=== PATIENT | male | born 1955 | race Caucasian/White ===

== ENCOUNTER 2019-11-15 15:31 | Outpatient (CLI) | payer MEDICARE | END 2019-11-15 15:32 | disposition home or self-care (01) | LOC: CTENTCT 15:31 | PROVIDERS: ATTEND Otolaryngology Plastic Surgery within the Head & Neck | DX: J01.91 Acute recurrent sinusitis, unspecified (principal) | CPT/HCPCS: 70486 ==

== ENCOUNTER 2019-12-03 08:24 | Outpatient (CLI) | payer MEDICARE, OTHER ==
[2019-12-03 13:32] LABS: Hemoglobin 14.5 g/dL (14.0-18.0)
[2019-12-03 13:51] LABS: Anion Gap 12 mmol/L (10-20); BUN (Urea Nitrogen) 14 mg/dL (8.4-25.7); Calc. Creatinine Clearance 0 mL/min (70-130); Calcium 8.8 mg/dL (7.8-10.44); Carbon Dioxide 25 mmol/L (23-31); Chloride 105 mmol/L (98-107); Estimated GFR-MDRD 80; Glucose 105 mg/dL (80-115); Sodium 138 mmol/L (136-145)
[2019-12-03 18:48] LABS: SARS-CoV-2 MS2 Positive; SARS-CoV-2 N Gene Negative; SARS-CoV-2 S Gene Negative; SARS-CoV-2 orf1ab Negative
== END 2019-12-03 08:25 | disposition home or self-care (01) ==
LOC: LABBT 08:24
PROVIDERS: ATTEND Otolaryngology Plastic Surgery within the Head & Neck
DX: Z01.818 Encounter for other preprocedural examination (principal); Z11.59 Encounter for screening for other viral diseases; J01.91 Acute recurrent sinusitis, unspecified; J34.2 Deviated nasal septum; J30.9 Allergic rhinitis, unspecified; J34.3 Hypertrophy of nasal turbinates; J34.89 Other specified disorders of nose and nasal sinuses; J33.9 Nasal polyp, unspecified
CPT/HCPCS: 80048; 85014; 85018; 93005; U0003; 87635; 93010

== ENCOUNTER 2019-12-05 10:12 | Day surgery (SDC) | payer MEDICARE ==
[2019-12-03 12:45] VITALS: BMI 34.2
[2019-12-05] MEDS ORDERED: AFRIN NASAL MIST 15 ML BOT ONE ×2 (11:49→13:28)
[2019-12-05] MEDS ORDERED: Dexamethasone 20 MG/5 ML VIAL ONE (12:06)
[2019-12-05] MEDS ORDERED: Rocuronium Bromide 10 MG/ML (10ML VIAL) ONE (12:06)
[2019-12-05] MEDS ORDERED: PROPOFOL 200 MG/20 ML VIAL ONE (12:06)
[2019-12-05] MEDS ORDERED: Glycopyrrolate 0.2 MG/ML 5 ML SYRINGE ONE (12:06)
[2019-12-05] MEDS ORDERED: Ondansetron PF 4 MG/2 ML Vial ONE (12:06)
[2019-12-05] MEDS ORDERED: Lidocaine 1% PF 5 ML VIAL ONE (12:06)
[2019-12-05] MEDS ORDERED: Bacitracin Zinc Ointment 30 gm TUBE ONE (13:28)
[2019-12-05] MEDS ORDERED: Lidocaine 1% w/Epinephrine 1:100K 20 ML VIAL ONE (13:28)
[2019-12-05] MEDS ORDERED: Fentanyl 250 MCG/5 ML VIAL ONE (13:54)
[2019-12-05] MEDS ORDERED: HYDROcodone/Acetaminophen 5/325 mg Tablet ONE (15:44)
[2019-12-05] MEDS ORDERED: Fentanyl 100 MCG/2 ML VIAL ONE (15:52)
--- NOTE | 2019-12-06 10:02 | OP ---
DATE OF PROCEDURE: 12/05/2019 PREOPERATIVE DIAGNOSES: 1. Bilateral chronic dutton sinusitis. 2. Bilateral nasal polyposis. 3. Allergic fungal sinusitis. 4. Nasal septal deviation. 5. Bilateral inferior turbinate hypertrophy. 6. Nasal obstruction. 7. Bilateral dynamic nasal valve collapse. POSTOPERATIVE DIAGNOSES: 1. Bilateral chronic dutton sinusitis. 2. Bilateral nasal polyposis. 3. Allergic fungal sinusitis. 4. Nasal septal deviation. 5. Bilateral inferior turbinate hypertrophy. 6. Nasal obstruction. 7. Bilateral dynamic nasal valve collapse. PROCEDURES PERFORMED: 1. Bilateral endoscopic sinus surgery, total ethmoidectomies, including sphenoidotomies with removal of tissue. 2. Bilateral endoscopic sinus surgery, maxillary antrostomies with removal of tissue. 3. Bilateral endoscopic sinus surgery, frontal sinus exploration with removal of tissue. 4. Nasal septoplasty. 5. Bilateral inferior turbinate submucosal resection. 6. Bilateral repair of lateral nasal wall collapse. 7. LandmarX stereotactic image-guided sinus surgery. ESTIMATED BLOOD LOSS: 300 mL. COMPLICATIONS: None. ANESTHESIA: GETA. PROCEDURE IN DETAIL: Patient was taken to the operating room and placed supine on the table. General endotracheal anesthesia was obtained by the anesthesia staff. Then 1% lidocaine with 1:100,000 epinephrine was injected into the nasal septum as well as the inferior turbinates. The patient was prepped and draped in standard surgical fashion. The Afrin pledgets were then removed. A Eric incision was made on the left nasal septum. Submucoperichondrial dissection was performed bilaterally of the deviated portions of the septum, which included the maxillary crest and the crest deviation, as well as the mid portion of the septum. Cartilage and bony deviation were removed, leaving a generous caudal and dorsal strut. Any straight pieces of cartilage were then placed within the cartilage press, pressed, straightened, and then placed between the mucoperichondrial flaps, which were then closed using a 4-0 gut stitch. The inferior turbinates were then punctured with the submucosal Coblation machine, and 3 separate coblations were delivered to the anterior inferior portion of the inferior turbinates. Following this, the nasal cavity was irrigated. All debris was removed. An orogastric tube was placed. Gastric contents and Carvalho splints were then placed in the nasal cavity and sutured with a 3-0 silk stitch. The 0-degree microscope and microdebrider advanced into the nasal cavity. There were severe nasal polyposis bilaterally obstructing the entire nasal cavity. These nasal polyps were removed using the microdebrider and straight Blakesley forceps. A 1% lidocaine with 1:100,000 epinephrine were injected into the inferior turbinates, middle turbinates, and lateral nasal wall bilaterally. The middle turbinates were markedly atrophic from pressure from the nasal polyps. They were gently medialized and the uncinate process was visualized bilaterally and was removed using a ball-ended probe, up-biting Blakesley forceps and a 0-degree microdebrider bilaterally. Following this, the natural maxillary sinus ostia was identified and was widened using a straight Blakesley forceps and a 40-degree microdebrider blade bilaterally. Nasal polyps and fungal debris was removed from within the maxillary sinus bilaterally. Following this, the ethmoidal bulla was identified and was punctured on its medial and inferior aspect and was removed using the 0-degree microdebrider under Diasome image-guided assistance. The [employer] image-guided system was set up and calibrated and was noted to be within 1 mm of accuracy and all intranasal instruments used were under image guidance. Following this, the ethmoidal bulla was removed using the microdebrider bilaterally. The grand lamella was identified and was punctured into the posterior ethmoidal cells and was widened using the microdebrider bilaterally. The ethmoidal cells were completely full of nasal polyps which were removed using the microdebrider and Blakesley forceps bilaterally. Following this, the anterior wall of the sphenoid sinus was identified under image guidance and a 0-degree microdebrider was punctured into the sphenoid sinus bilaterally. The sphenoid sinus ostia was then widened in a medial and inferior direction bilaterally using 0-degree microdebrider. Polypoid tissue and fungal debris was removed from the sphenoid sinuses bilaterally. Following this, the 45-degree endoscope and the 40-degree microdebrider blade under image guidance was used to further open the anterior ethmoidal cells and expose the frontal sinus recess and frontal sinus ostia bilaterally. Following this, the frontal sinus ostia was widened bilaterally using the 40-degree microdebrider blade and up-biting Blakesley forceps. Fungal debris and nasal polyps were removed from the frontal sinuses bilaterally. Following this, the nasal cavity was irrigated and NasoPore packing was placed within the middle meatus due to excessive bleeding from the polypoid tissue and chronically infected mucosa. Merocel nasal tampons were placed bilaterally and were secured. Following this, a small incision was made intranasally in a transcartilaginous approach to the lateral nasal wall and implants were inserted restoring the integrity of the nasal wall bilaterally. The puncture site was then closed using a 6-0 chromic gut stitch. Following this, the Diasome image guided system was turned off. The patient tolerated the procedure well. Job ID: [id number]
== END 2019-12-05 18:15 | disposition home or self-care (01) ==
LOC: SDC 10:12
PROVIDERS: ATTEND Otolaryngology Plastic Surgery within the Head & Neck
PROC: 09SM0ZZ Reposition Nasal Septum, Open Approach (ICD-10-PCS; principal; 2019-12-05)
PROC: 09TL0ZZ Resection of Nasal Turbinate, Open Approach (ICD-10-PCS; 2019-12-05)
PROC: 8E09XBZ Computer Assisted Procedure of Head and Neck Region (ICD-10-PCS; 2019-12-05)
PROC: 09BT8ZZ Excision of Left Frontal Sinus, Via Natural or Artificial Opening Endoscopic (ICD-10-PCS; 2019-12-05)
PROC: 09BW8ZZ Excision of Right Sphenoid Sinus, Via Natural or Artificial Opening Endoscopic (ICD-10-PCS; 2019-12-05)
PROC: 09BX8ZZ Excision of Left Sphenoid Sinus, Via Natural or Artificial Opening Endoscopic (ICD-10-PCS; 2019-12-05)
PROC: 09BQ8ZZ Excision of Right Maxillary Sinus, Via Natural or Artificial Opening Endoscopic (ICD-10-PCS; 2019-12-05)
PROC: 09BR8ZZ Excision of Left Maxillary Sinus, Via Natural or Artificial Opening Endoscopic (ICD-10-PCS; 2019-12-05)
PROC: 09BS8ZZ Excision of Right Frontal Sinus, Via Natural or Artificial Opening Endoscopic (ICD-10-PCS; 2019-12-05)
PROC: 09TV8ZZ Resection of Left Ethmoid Sinus, Via Natural or Artificial Opening Endoscopic (ICD-10-PCS; 2019-12-05)
PROC: 09TU8ZZ Resection of Right Ethmoid Sinus, Via Natural or Artificial Opening Endoscopic (ICD-10-PCS; 2019-12-05)
PROC: 09QK0ZZ Repair Nasal Mucosa and Soft Tissue, Open Approach (ICD-10-PCS; 2019-12-05)
DX: J32.4 Chronic pansinusitis (principal); J33.9 Nasal polyp, unspecified; J30.89 Other allergic rhinitis; J34.2 Deviated nasal septum; J34.3 Hypertrophy of nasal turbinates; J34.89 Other specified disorders of nose and nasal sinuses; I10 Essential (primary) hypertension; R73.03 Prediabetes; K13.79 Other lesions of oral mucosa; H69.83 Other specified disorders of Eustachian tube, bilateral; H61.22 Impacted cerumen, left ear; H10.9 Unspecified conjunctivitis; Z79.51 Long term (current) use of inhaled steroids; Z79.899 Other long term (current) drug therapy; Z88.1 Allergy status to other antibiotic agents
CPT/HCPCS: 88304; J1100; J2001; J2405; J2704; J3010

== ENCOUNTER 2020-01-19 20:25 | Emergency (ER) | payer MEDICARE ==
[2020-01-19 21:15] LABS: #Eosinphils 0.1 thou/uL (0.0-0.7); #Lymphocytes 1.4 thou/uL (1.20-3.40); #Monocytes 0.6 thou/uL (0.11-0.59); #Neutrophils 10.9 thou/uL (1.40-6.50); %Basophils 0.4 % (0.0-1.0); %Eosinophils 0.4 % (0.0-10.0); %Lymphocytes 10.6 % (21.0-51.0); %Monocytes 4.9 % (0.0-10.0); %Neutrophils 83.7 % (42.0-75.0); Hemoglobin 14.2 g/dL (14.0-18.0); Mean Corpuscular HGB CONC 35.7 g/dL (32.0-36.0); Mean Corpuscular Hemoglobin 33.6 pg (27.0-31.0); Mean Corpuscular Volume 94.2 fL (78.0-98.0); Platelet Count 270 thou/uL (130-400); RBC Distribution Width 11.8 % (11.5-14.5); Red Blood Cell (RBC) Count 4.23 mill/uL (4.70-6.10)
[2020-01-19] MEDS ORDERED: Ketorolac Tromethamine 30 MG/ML VIAL ONE (21:39)
[2020-01-19] MEDS ORDERED: Ondansetron PF 4 MG/2 ML Vial ONE (21:39)
--- NOTE | 2020-01-19 21:42 | CT ---
CT ABDOMEN AND PELVIS WITHOUT IV CONTRAST: 01/19/20 INDICATIONS: Right abdominal pain. Nausea and vomiting. Comparison made to CT abdomen and pelvis from 02/03/17. FINDINGS: The lung bases are clear. Liver, spleen, and pancreas unremarkable. Post cholecystectomy change. Stomach and duodenum unremark able. There is moderate right hydronephrosis. Columning of the right ureter. There is an obstructing calculus in the distal right ureter which measures 6 to 7 mm. Left kidney and left collecting structures unremarkable. Urinary bladder unremarkable. Bowel loops unremarkable. Aorta unremarkable. No adenopathy or free fluid. Osseous structures are unremarkable. IMPRESSION: 6 mm obstructing calculus in the distal right ureter. POS: AGW
[2020-01-19] MEDS ORDERED: Fentanyl 100 MCG/2 ML VIAL ONE (21:49)
[2020-01-19 21:53] LABS: ALT (SGPT) 38 U/L (8-55); AST (SGOT) 22 U/L (5-34); Albumin 4.6 g/dL (3.4-4.8); Alkaline Phosphatase 92 U/L (40-110); Anion Gap 17 mmol/L (10-20); BUN (Urea Nitrogen) 21 mg/dL (8.4-25.7); Bilirubin, Total 0.7 mg/dL (0.2-1.2); Calc. Creatinine Clearance 0 mL/min (70-130); Calcium 9.3 mg/dL (7.8-10.44); Carbon Dioxide 20 mmol/L (23-31); Chloride 107 mmol/L (98-107); Estimated GFR-MDRD 52; Globulin 2.9 g/dL (2.4-3.5); Glucose 157 mg/dL (80-115); Lipase 61 U/L (8-78); Potassium 3.9 mmol/L (3.5-5.1); Protein, Total 7.5 g/dL (5.8-8.1); Sodium 140 mmol/L (136-145)
[2020-01-19 22:39] LABS: Bacteria/HPF None Seen HPF (None Seen); Bilirubin Negative (Negative); Blood, Urine 1+ (Negative); Clarity Clear (Clear); Glucose, Urine (Dipstick) Normal (Negative); Ketone, Urine Trace mg/dL (Negative); Leukocyte Negative Leu/uL (Negative); Nitrite Negative (Negative); Protein, Urine (Dipstick) Negative (Neg-Trace); RBC/HPF 0-3 HPF (0-3); Specific Gravity, Urine 1.017 (1.002-1.036); Squamous Epithelial None Seen HPF (0-3); Urobilinogen Normal mg/dL (Less than 2); WBC/HPF 0-3 HPF (0-3); pH, Urine 5.5 (5.0-9.0)
== END 2020-01-19 23:10 | disposition home or self-care (01) ==
LOC: ERS 20:25
DX: N20.1 Calculus of ureter (principal); K21.9 Gastro-esophageal reflux disease without esophagitis; I10 Essential (primary) hypertension
CPT/HCPCS: 36415; 74176; 80053; 81003; 81015; 83690; 84484; 85025; 93005; 96361; 96374; 96375; J1885; J2405; J3010

== ENCOUNTER 2020-01-25 08:16 | Outpatient (CLI) | payer MEDICARE, OTHER ==
[2020-01-25 14:51] LABS: Hemoglobin 12.8 g/dL (14.0-18.0); Mean Corpuscular HGB CONC 34.5 g/dL (32.0-36.0); Mean Corpuscular Volume 95.6 fL (78.0-98.0); Mean Platelet Volume 7.5 fL (7.4-10.4); Platelet Count 255 thou/uL (130-400); RBC Distribution Width 11.3 % (11.5-14.5); Red Blood Cell (RBC) Count 3.89 mill/uL (4.70-6.10); White Blood Cell (WBC) Count 9.6 thou/uL (4.8-10.8)
[2020-01-25 14:59] LABS: Anion Gap 11 mmol/L (10-20); BUN (Urea Nitrogen) 21 mg/dL (8.4-25.7); Calc. Creatinine Clearance 0 mL/min (70-130); Calcium 8.7 mg/dL (7.8-10.44); Carbon Dioxide 28 mmol/L (23-31); Chloride 99 mmol/L (98-107); Estimated GFR-MDRD 48; Glucose 108 mg/dL (80-115); Potassium 3.8 mmol/L (3.5-5.1); Sodium 134 mmol/L (136-145)
[2020-01-25 15:05] LABS: Bacteria/HPF None Seen HPF (None Seen); Bilirubin Negative (Negative); Blood, Urine 1+ (Negative); Clarity Clear (Clear); Glucose, Urine (Dipstick) Normal (Negative); Ketone, Urine Negative (Negative); Leukocyte Negative Leu/uL (Negative); Nitrite Negative (Negative); Protein, Urine (Dipstick) Negative (Neg-Trace); Specific Gravity, Urine 1.016 (1.002-1.036); Squamous Epithelial None Seen HPF (0-3); Urobilinogen Normal mg/dL (Less than 2); pH, Urine 6.5 (5.0-9.0)
[2020-01-26 12:44] LABS: SARS-CoV-2 MS2 Positive; SARS-CoV-2 N Gene Negative; SARS-CoV-2 S Gene Negative; SARS-CoV-2 by NAA Not Detected (NotDetected); SARS-CoV-2 orf1ab Negative
== END 2020-01-25 08:17 | disposition home or self-care (01) ==
LOC: LABBT 08:16
PROVIDERS: ATTEND Urology
DX: Z01.818 Encounter for other preprocedural examination (principal); Z11.59 Encounter for screening for other viral diseases; N20.1 Calculus of ureter
CPT/HCPCS: 80048; 81001; 85027; 87086; U0003; 87635

== ENCOUNTER 2020-01-29 10:45 | Day surgery (SDC) | payer MEDICARE ==
[2020-01-25 09:44] VITALS: BMI 34.2
[2020-01-29] MEDS ORDERED: Ondansetron PF 4 MG/2 ML Vial ONE (10:54)
[2020-01-29] MEDS ORDERED: PROPOFOL 200 MG/20 ML VIAL ONE (10:54)
[2020-01-29] MEDS ORDERED: Lidocaine 1% PF 5 ML VIAL ONE (10:54)
[2020-01-29] MEDS ORDERED: Levofloxacin 500 mg/D5W 100 ml Premix Bag ONE ×2 (11:14→13:37)
[2020-01-29] MEDS ORDERED: Midazolam HCl 2 mg/2 ml Vial ONE (13:01)
[2020-01-29] MEDS ORDERED: Fentanyl 100 MCG/2 ML VIAL ONE (13:01)
[2020-01-29] MEDS ORDERED: Phenazopyridine HCl 97.5 MG TABLET ONE (14:15)
--- NOTE | 2020-01-29 14:27 | RAD ---
EXAM: Retrograde IVP HISTORY: Kidney stones COMPARISON: CT abdomen/pelvis 01/19/2020 FINDINGS/IMPRESSION: Limited intraoperative fluoroscopic views of the retrograde IVP were submitted f or interpretation. A right ureteral stent is being placed and appears in good position on the last image. No obvious calcification is seen on this exam.
--- NOTE | 2020-01-29 14:45 | OP ---
DATE OF PROCEDURE: 01/29/2020 PREOPERATIVE DIAGNOSIS: Right ureteral stone. POSTOPERATIVE DIAGNOSIS: Right ureteral stone. PROCEDURES PERFORMED: Right ureteroscopy with laser lithotripsy, basket extraction, retrograde pyelogram, intraoperative interpretation, and 6 x 26 double-J ureteral stent placement. ANESTHESIA: General. COMPLICATIONS: None. ESTIMATED BLOOD LOSS: None. SPECIMEN: Right ureteral stone fragment. DESCRIPTION OF PROCEDURE: After informed consent, the patient was taken to the operating room, transferred to the table on his own power. Anesthesia was established. A time-out was performed, showing the correct patient, site, and procedure. Preoperative antibiotics were administered. He was prepped and draped in the lithotomy position. I began by inserting the semi-rigid ureteroscope through the urethra noting normal course and caliber of the urethra and mildly obstructing prostate. The bladder was entered and the right ureteral orifice cannulated with a wire, which was passed up to the level of the renal pelvis under fluoroscopic guidance. The scope was withdrawn and reinserted alongside the wire into the distal ureter, where the stone was quickly encountered about 3 cm proximal to the UVJ. A retrograde pyelogram was performed showing hydroureter and hydronephrosis. A 365 micron laser fiber was used to trim the stone down to one piece that was then removed with the basket and passed off the specimen. The scope was then reinserted and passed up to the proximal ureter noting no further stone fragments or abnormalities. A completion retrograde was performed. The scope was then withdrawn and a 6 x 26 double-J ureteral stent was passed over the wire with a curl in the kidney and curl in the bladder under fluoroscopic guidance. The bladder was then drained. The patient was then awoken from anesthesia, transferred back to his hospital bed and taken to PACU in stable condition, where he was discharged home upon recovery. Job ID: [id number]
== END 2020-01-29 16:06 | disposition home or self-care (01) ==
LOC: SDC 10:45
PROVIDERS: ATTEND Urology
PROC: 0TC68ZZ Extirpation of Matter from Right Ureter, Via Natural or Artificial Opening Endoscopic (ICD-10-PCS; principal; 2020-01-29)
PROC: 0T768DZ Dilation of Right Ureter with Intraluminal Device, Via Natural or Artificial Opening Endoscopic (ICD-10-PCS; 2020-01-29)
DX: N20.1 Calculus of ureter (principal); I10 Essential (primary) hypertension; R73.03 Prediabetes; Z79.899 Other long term (current) drug therapy; Z88.0 Allergy status to penicillin
CPT/HCPCS: 74420; 82365; 88300; J1956; J2250; J2405; J2704; J3010

== ENCOUNTER 2021-04-09 17:06 | Inpatient (IN) | payer MEDICARE ==
[2021-04-09 19:16] VITALS: BMI 34.2
[2021-04-09] MEDS ORDERED: Nitroglycerin 0.4 MG TAB (25 Tab Bottle) SL PRN (19:28)
[2021-04-09] MEDS ORDERED: Ondansetron PF 4 MG/2 ML Vial IVP PRN (19:28)
[2021-04-09] MEDS ORDERED: Acetaminophen 325 MG TAB PO PRN (19:28)
[2021-04-09] MEDS ORDERED: hydrALAZINE 20 MG/ML VIAL SLOW IVP PRN (19:32)
[2021-04-09] MEDS ORDERED: Nitroglycerin 2% Ointment 1 INCH/1 GM Packet TOP SCH (20:30)
[2021-04-09 21:29] LABS: Troponin I 0.515 ng/mL (< 0.028)
[2021-04-09] MEDS ORDERED: Enoxaparin Sodium 120 MG/0.8 ML SYRINGE SC SCH (22:00)
[2021-04-09 23:02] LABS: Troponin I 0.845 ng/mL (< 0.028)
[2021-04-10 05:04] LABS: #Basophils 0.1 thou/uL (0.0-0.2); #Eosinphils 0.4 thou/uL (0.0-0.7); #Lymphocytes 3.1 thou/uL (1.20-3.40); #Monocytes 0.8 thou/uL (0.11-0.59); #Neutrophils 5.8 thou/uL (1.40-6.50); %Eosinophils 3.8 % (0.0-10.0); %Lymphocytes 30.7 % (21.0-51.0); %Neutrophils 56.5 % (42.0-75.0); Hemoglobin 12.9 g/dL (14.0-18.0); Hemoglobin A1c 6.4 % (4.0-6.0); Mean Corpuscular HGB CONC 34.7 g/dL (32.0-36.0); Mean Corpuscular Hemoglobin 32.6 pg (27.0-31.0); Mean Platelet Volume 7.4 fL (7.4-10.4); Platelet Count 254 thou/uL (130-400); RBC Distribution Width 12.1 % (11.5-14.5); Red Blood Cell (RBC) Count 3.96 mill/uL (4.70-6.10); White Blood Cell (WBC) Count 10.2 thou/uL (4.8-10.8)
[2021-04-10 05:36] LABS: Anion Gap 13 mmol/L (10-20); BUN (Urea Nitrogen) 22 mg/dL (8.4-25.7); Calc. Creatinine Clearance 84 mL/min (70-130); Calcium 8.9 mg/dL (7.8-10.44); Carbon Dioxide 23 mmol/L (23-31); Cardiac Risk 5.4 (Less than 4.5); Chloride 103 mmol/L (98-107); Cholesterol 162 mg/dl (< 200 Desired); Glucose 121 mg/dL (80-115); HDL Cholesterol 30 mg/dL (>60 Neg Risk); LDL Cholesterol, Calculated 105 mg/dL; Potassium 3.8 mmol/L (3.5-5.1); Sodium 135 mmol/L (136-145); Triglycerides 135 mg/dL (Less than 150)
[2021-04-10 05:37] LABS: Troponin I 2.057 ng/mL (< 0.028)
[2021-04-10 07:55] LABS: Cardiac Risk 5.1 (Less than 4.5)
[2021-04-10] MEDS ORDERED: Aspirin 325 mg Enteric Coated Tablet PO SCH (08:30)
[2021-04-10 08:33] LABS: SARS-CoV-2 PCR by NAA Not Detected (NotDetected)
[2021-04-10] MEDS ORDERED: Sodium Chloride 0.9% 1,000 ML IV SCH (09:00)
[2021-04-10] MEDS ORDERED: Enoxaparin Sodium 120 MG/0.8 ML SYRINGE SC SCH (09:00)
[2021-04-10] MEDS ORDERED: FLU VACC QS2021-22(65YR UP)/PF 240 MCG/0.7 ML SYRINGE IM ONE (09:00)
[2021-04-10] MEDS ORDERED: Midazolam HCl 2 mg/2 ml Vial ONE (09:10)
[2021-04-10] MEDS ORDERED: Nitroglycerin 100MG/250ML BOT 0 ML ONE (09:10)
[2021-04-10] MEDS ORDERED: Fentanyl 100 MCG/2 ML VIAL ONE ×3 (09:10→16:57)
[2021-04-10] MEDS ORDERED: Heparin 10,000 UNITS/ 10 ML VIAL ONE (09:10)
[2021-04-10] MEDS ORDERED: Lidocaine 1% (PF) 30 ML VIAL ONE (09:10)
[2021-04-10] MEDS ORDERED: Heparin 25,000 units/D5W 500 ML ONE (10:41)
[2021-04-10] MEDS ORDERED: Albumin 5% 500 ML ONE (11:03)
[2021-04-10] MEDS ORDERED: Nitroglycerin 2% Ointment 1 INCH/1 GM Packet ONE (11:21)
[2021-04-10] MEDS ORDERED: ceFAZolin 2 GM/DEX 5% 100 ML BAG ONE (11:30)
[2021-04-10] MEDS ORDERED: Fentanyl 250 MCG/5 ML VIAL ONE ×2 (12:24)
[2021-04-10] MEDS ORDERED: Midazolam HCl 5 mg/5 ml Vial ONE (12:24)
[2021-04-10] MEDS ORDERED: Rocuronium Bromide 50 MG/5 ML VIAL ONE (12:25)
[2021-04-10] MEDS ORDERED: Lidocaine 2% PF 100 mg/5 ml Syringe ONE (12:55)
[2021-04-10] MEDS ORDERED: Heparin 1,000 UNITS/500 ML BAG (ARTLINE) ONE (12:55)
[2021-04-10] MEDS ORDERED: Heparin 5,000 UNITS/ML VIAL ONE (12:55)
[2021-04-10] MEDS ORDERED: Aminocaproic Acid 5 GM/20 ML VIAL ONE (12:55)
[2021-04-10] MEDS ORDERED: Nitroglycerin 50 MG/250 ML BOT ONE (12:55)
[2021-04-10] MEDS ORDERED: Calcium Chloride 1 GM/10 ML Abboject SYRINGE ONE (12:55)
[2021-04-10] MEDS ORDERED: Potassium Chloride 60 MEQ/30 ML VIAL ONE (12:55)
[2021-04-10] MEDS ORDERED: Papaverine 60 MG/2 ML VIAL ONE (12:55)
[2021-04-10] MEDS ORDERED: Heparin 30,000 units/30 ml VIAL ONE (12:55)
[2021-04-10] MEDS ORDERED: ePHEDrine 50 MG/ML VIAL ONE (12:55)
[2021-04-10] MEDS ORDERED: Mannitol 12.5 GM/50 ML ONE (12:55)
[2021-04-10] MEDS ORDERED: Norepinephrine 4 MG/4 ML VIAL ONE (12:55)
[2021-04-10] MEDS ORDERED: Thrombin 5000 UNITS/5 ML VIAL ONE (12:55)
[2021-04-10] MEDS ORDERED: Magnesium Sulfate 1 GM/2 ML VIAL ONE (12:55)
[2021-04-10] MEDS ORDERED: PROPOFOL 200 MG/20 ML VIAL ONE (12:55)
[2021-04-10] MEDS ORDERED: Rocuronium Bromide 10 MG/ML (10ML VIAL) ONE (12:55)
[2021-04-10] MEDS ORDERED: Lidocaine 1% PF 5 ML VIAL ONE (12:55)
[2021-04-10] MEDS ORDERED: Protamine Sulfate 250 MG/25 ML VIAL ONE (12:55)
[2021-04-10] MEDS ORDERED: Sodium Bicarb 50 MEQ/50 ML Abboject 8.4% SYRINGE ONE (12:55)
[2021-04-10] MEDS ORDERED: Cardioplegic Soln 1,000 ML BAG ONE (12:55)
[2021-04-10] MEDS ORDERED: Esmolol 100 MG/10 ML VIAL ONE (12:55)
[2021-04-10] MEDS ORDERED: Sodium Chloride 0.9% 10 ML ONE (12:56)
[2021-04-10 16:44] LABS: Actual Bicarbonate (HCO3a) 21.1 mEq/L (22-28); Base Excess (BEa) -3.8 mEq/L (-2.0 to +3.0); CO2 Tension 37.8 mmHg (35.0-45.0); Calcium, Ionized (arterial) 1.23 mmol/L (1.12-1.30); Carboxyhemoglobin (COHb) 0.7 gm% (0.0-3.0); Hemoglobin (Hb) 12.1 g/dL (14.0-18.0); Potassium - ABG Lab 4.17 mmol/L (3.70-5.30); pH, Arterial 7.36 (7.35-7.45)
[2021-04-10 16:45] LABS: Puncture Site Arterial Line
[2021-04-10] MEDS ORDERED: niCARdipine 25 MG in Sodium Chloride 0.9% 250 ML 240 ML IVPB PRN (16:53)
[2021-04-10] MEDS ORDERED: Fentanyl 100 MCG/2 ML VIAL SLOW IVP PRN (16:53)
[2021-04-10] MEDS ORDERED: Nitroglycerin 50 MG/250 ML BOT 250 ML IVPB PRN (16:53)
[2021-04-10] MEDS ORDERED: Bisacodyl 10 MG SUPP PR PRN (16:53)
[2021-04-10] MEDS ORDERED: Potassium Chloride 20 MEQ/100 ML PREMIX BAG IVPB PRN (16:53)
[2021-04-10] MEDS ORDERED: Promethazine HCl 25 MG/ML VIAL IM PRN (16:53)
[2021-04-10] MEDS ORDERED: Mag-Al 1200 mg/1200 mg/30 ML UDCUP PO PRN (16:53)
[2021-04-10] MEDS ORDERED: hydrALAZINE 20 MG/ML VIAL SLOW IVP PRN (16:53)
[2021-04-10] MEDS ORDERED: Guaifenesin DM 100-10/5 ML UDCUP PO PRN (16:53)
[2021-04-10] MEDS ORDERED: Morphine 2 MG/ML VIAL SLOW IVP PRN (16:53)
[2021-04-10] MEDS ORDERED: Post-Op Insulin Drip Protocol IVPB ONE (16:53)
[2021-04-10] MEDS ORDERED: Ondansetron PF 4 MG/2 ML Vial IVP PRN (16:53)
[2021-04-10] MEDS ORDERED: Norepinephrine 8 MG/0.9% NS 250 ML IVPB PRN (16:53)
[2021-04-10] MEDS ORDERED: Bisacodyl 5 MG TAB PO PRN (16:53)
[2021-04-10] MEDS ORDERED: Hetastarch 6% 500 ML 500 ML IVPB PRN (16:53)
[2021-04-10] MEDS ORDERED: Acetaminophen 325 MG TAB PO PRN (16:53)
[2021-04-10] MEDS ORDERED: Insulin Regular 300 UNITS/3 ML VIAL ONE (17:13)
[2021-04-10 17:14] LABS: #Basophils 0.1 thou/uL (0.0-0.2); #Eosinphils 0.4 thou/uL (0.0-0.7); #Lymphocytes 3.3 thou/uL (1.20-3.40); #Neutrophils 11.7 thou/uL (1.40-6.50); %Basophils 0.5 % (0.0-1.0); %Eosinophils 2.5 % (0.0-10.0); %Lymphocytes 19.9 % (21.0-51.0); %Monocytes 6.3 % (0.0-10.0); %Neutrophils 70.9 % (42.0-75.0); Hemoglobin 11.9 g/dL (14.0-18.0); Mean Corpuscular HGB CONC 35.2 g/dL (32.0-36.0); Mean Corpuscular Hemoglobin 33.8 pg (27.0-31.0); Mean Platelet Volume 7.1 fL (7.4-10.4); Platelet Count 162 thou/uL (130-400); RBC Distribution Width 12.2 % (11.5-14.5); Red Blood Cell (RBC) Count 3.54 mill/uL (4.70-6.10); White Blood Cell (WBC) Count 16.6 thou/uL (4.8-10.8)
[2021-04-10 17:23] LABS: Anion Gap 13 mmol/L (10-20); BUN (Urea Nitrogen) 21 mg/dL (8.4-25.7); Calc. Creatinine Clearance 93 mL/min (70-130); Calcium 8.6 mg/dL (7.8-10.44); Carbon Dioxide 18 mmol/L (23-31); Chloride 108 mmol/L (98-107); Glucose 136 mg/dL (80-115); Potassium 4.3 mmol/L (3.5-5.1); Sodium 135 mmol/L (136-145)
[2021-04-10 17:26] LABS: INR-International Normal Ratio 1.3; PTT 27.9 sec (22.9-36.1); Prothrombin Time 16.4 sec (12.0-14.7)
[2021-04-10] MEDS: Lactated Ringer's 1,000 ML IV SCH (17:30)
[2021-04-10] MEDS ORDERED: Dextrose 50% Abboject 50 ML SYRINGE SLOW IVP PRN (17:30)
[2021-04-10] MEDS ORDERED: HUMULIN R 100 UNITS in Sodium Chloride 0.9% 100 ML IVPB SCH (17:30)
[2021-04-10] MEDS ORDERED: Dextrose 5% in Water 1,000 ML IV PRN (17:30)
[2021-04-10] MEDS ORDERED: Insulin Regular 300 UNITS/3 ML VIAL SC PRN (17:30)
[2021-04-10 17:45] LABS: Potassium 4.2 mmol/L (3.5-5.1)
[2021-04-10] MEDS ORDERED: Morphine 4 MG/ML VIAL SLOW IVP PRN (19:26)
[2021-04-10] MEDS ORDERED: Atorvastatin Calcium 40 MG TAB PO SCH (21:00)
[2021-04-10] MEDS ORDERED: Famotidine/PF 20 mg/2ml Vial SLOW IVP SCH (21:00)
[2021-04-10 21:42] LABS: Actual Bicarbonate (HCO3a) 16.9 mEq/L (22-28); Base Excess (BEa) -6.7 mEq/L (-2.0 to +3.0); CO2 Tension 28.3 mmHg (35.0-45.0); Calcium, Ionized (arterial) 1.14 mmol/L (1.12-1.30); Carboxyhemoglobin (COHb) 0.6 gm% (0.0-3.0); Hemoglobin (Hb) 11.9 g/dL (14.0-18.0); O2 Tension (PaO2), arterial 80.6 mmHg (> 80.0); Potassium - ABG Lab 3.96 mmol/L (3.70-5.30)
[2021-04-10 22:03] LABS: ALV-art Gradient 97.925 mmHg (0-20); Puncture Site Arterial Line
[2021-04-10] MEDS: ceFAZolin Sodium/D5W 2 GM in Premix Bag 1 BAG IVPB SCH (22:14)
[2021-04-10 22:16] LABS: Hemoglobin 12.1 g/dL (14.0-18.0)
[2021-04-10 22:24] LABS: Potassium 4.2 mmol/L (3.5-5.1)
[2021-04-10] MEDS: HYDROcodone/Acetaminophen 5/325 mg Tablet PO PRN (23:44)
[2021-04-11] MEDS: Fentanyl 100 MCG/2 ML VIAL SLOW IVP PRN ×3 (00:45→06:13)
[2021-04-11] MEDS: HYDROcodone/Acetaminophen 5/325 mg Tablet PO PRN ×4 (04:25→20:30)
[2021-04-11 05:15] LABS: #Basophils 0.1 thou/uL (0.0-0.2); #Lymphocytes 1.3 thou/uL (1.20-3.40); #Neutrophils 9.4 thou/uL (1.40-6.50); %Basophils 0.6 % (0.0-1.0); %Eosinophils 0.3 % (0.0-10.0); %Lymphocytes 11.1 % (21.0-51.0); %Monocytes 8.7 % (0.0-10.0); %Neutrophils 79.2 % (42.0-75.0); Hemoglobin 11.1 g/dL (14.0-18.0); Mean Corpuscular HGB CONC 33.8 g/dL (32.0-36.0); Mean Corpuscular Hemoglobin 32.5 pg (27.0-31.0); Mean Platelet Volume 7.5 fL (7.4-10.4); Platelet Count 216 thou/uL (130-400); RBC Distribution Width 12.3 % (11.5-14.5); Red Blood Cell (RBC) Count 3.41 mill/uL (4.70-6.10); White Blood Cell (WBC) Count 11.9 thou/uL (4.8-10.8)
[2021-04-11] MEDS: ceFAZolin Sodium/D5W 2 GM in Premix Bag 1 BAG IVPB SCH ×2 (05:24→07:37)
[2021-04-11 05:34] LABS: Anion Gap 13 mmol/L (10-20); BUN (Urea Nitrogen) 20 mg/dL (8.4-25.7); Calc. Creatinine Clearance 97 mL/min (70-130); Calcium 8.6 mg/dL (7.8-10.44); Carbon Dioxide 22 mmol/L (23-31); Chloride 107 mmol/L (98-107); Glucose 136 mg/dL (80-115); Potassium 4.3 mmol/L (3.5-5.1); Sodium 138 mmol/L (136-145)
[2021-04-11] MEDS: Lactated Ringer's 1,000 ML IV SCH (06:28)
[2021-04-11] MEDS ORDERED: Furosemide 40 MG/4 ML VIAL SLOW IVP SCH (06:30)
[2021-04-11] MEDS: Carvedilol 3.125 MG TAB PO SCH ×2 (07:38→17:50)
[2021-04-11] MEDS: Aspirin 325 MG TAB PO SCH (07:38)
[2021-04-11] MEDS: Potassium Chloride 10 MEQ TAB PO SCH ×2 (07:40→17:50)
[2021-04-11] MEDS ORDERED: Aspirin 325 mg Enteric Coated Tablet PO SCH (09:00)
[2021-04-11] MEDS: Furosemide 40 MG TAB PO SCH (14:05)
[2021-04-11] MEDS: Atorvastatin Calcium 40 MG TAB PO SCH (20:30)
[2021-04-12] MEDS: HYDROcodone/Acetaminophen 5/325 mg Tablet PO PRN ×2 (00:21→08:17)
[2021-04-12] MEDS: Carvedilol 3.125 MG TAB PO SCH ×2 (08:49→19:25)
[2021-04-12] MEDS: Aspirin 325 MG TAB PO SCH (08:49)
[2021-04-12] MEDS: Furosemide 40 MG TAB PO SCH ×2 (08:49→14:36)
[2021-04-12] MEDS: Potassium Chloride 10 MEQ TAB PO SCH ×2 (08:49→19:25)
[2021-04-12] MEDS ORDERED: Mineral Oil ENEMA PR PRN (19:20)
[2021-04-12] MEDS ORDERED: Nitroglycerin 0.4 MG TAB (25 Tab Bottle) SL PRN (19:20)
[2021-04-12] MEDS ORDERED: Milk Of Magnesia 30 ML UDCUP PO PRN (19:20)
[2021-04-12] MEDS ORDERED: Zolpidem Tartrate 5 MG TAB PO PRN (19:20)
[2021-04-12] MEDS ORDERED: diphenhydrAMINE 25 MG CAP PO PRN (19:20)
[2021-04-12] MEDS: Atorvastatin Calcium 40 MG TAB PO SCH (22:16)
[2021-04-13] MEDS: Furosemide 40 MG TAB PO SCH ×2 (08:47→14:53)
[2021-04-13] MEDS: Carvedilol 3.125 MG TAB PO SCH ×2 (08:47→16:26)
[2021-04-13] MEDS: Potassium Chloride 10 MEQ TAB PO SCH ×2 (08:47→16:26)
[2021-04-13] MEDS: Aspirin 325 MG TAB PO SCH (08:47)
[2021-04-13 08:50] LABS: #Lymphocytes 1.3 thou/uL (1.20-3.40); #Monocytes 1.3 thou/uL (0.11-0.59); #Neutrophils 13.3 thou/uL (1.40-6.50); %Basophils 0.3 % (0.0-1.0); %Eosinophils 0.1 % (0.0-10.0); %Neutrophils 83.7 % (42.0-75.0); Hemoglobin 10.6 g/dL (14.0-18.0); Mean Corpuscular HGB CONC 34.8 g/dL (32.0-36.0); Mean Corpuscular Hemoglobin 33.3 pg (27.0-31.0); Mean Corpuscular Volume 95.7 fL (78.0-98.0); Mean Platelet Volume 7.3 fL (7.4-10.4); Platelet Count 201 thou/uL (130-400); RBC Distribution Width 12.2 % (11.5-14.5); Red Blood Cell (RBC) Count 3.19 mill/uL (4.70-6.10); White Blood Cell (WBC) Count 15.9 thou/uL (4.8-10.8)
[2021-04-13 09:17] LABS: Anion Gap 14 mmol/L (10-20); BUN (Urea Nitrogen) 26 mg/dL (8.4-25.7); Calc. Creatinine Clearance 138 mL/min (70-130); Carbon Dioxide 23 mmol/L (23-31); Chloride 102 mmol/L (98-107); Glucose 154 mg/dL (80-115); Sodium 135 mmol/L (136-145)
[2021-04-13 09:27] LABS: Phosphorus 1.8 mg/dL (2.3-4.7)
[2021-04-13] MEDS: HYDROcodone/Acetaminophen 5/325 mg Tablet PO PRN (09:39)
[2021-04-13] MEDS ORDERED: Potassium Phosphate 30 MMOL in Sodium Chloride 0.9% 500 ML IVPB SCH ×2 (11:00→12:15)
[2021-04-13] MEDS ORDERED: Enoxaparin Sodium 40 MG/0.4 ML SYRINGE SC SCH (12:30)
[2021-04-13 14:22] LABS: Lactic Acid 1.5 mmol/L (0.5-2.2)
[2021-04-13] MEDS ORDERED: Bisacodyl 5 MG TAB PO SCH (16:02)
[2021-04-13] MEDS: Atorvastatin Calcium 40 MG TAB PO SCH (20:40)
[2021-04-14] MEDS ORDERED: Aspirin 325 MG TAB PO SCH (06:28)
[2021-04-14 08:18] LABS: #Eosinphils 0.1 thou/uL (0.0-0.7); #Lymphocytes 2.1 thou/uL (1.20-3.40); #Neutrophils 10.1 thou/uL (1.40-6.50); %Basophils 0.4 % (0.0-1.0); %Eosinophils 0.7 % (0.0-10.0); %Lymphocytes 15.9 % (21.0-51.0); %Monocytes 7.7 % (0.0-10.0); %Neutrophils 75.3 % (42.0-75.0); Hemoglobin 10.3 g/dL (14.0-18.0); Mean Corpuscular HGB CONC 33.4 g/dL (32.0-36.0); Mean Corpuscular Volume 95.9 fL (78.0-98.0); Mean Platelet Volume 7.2 fL (7.4-10.4); Platelet Count 289 thou/uL (130-400); RBC Distribution Width 12.5 % (11.5-14.5); Red Blood Cell (RBC) Count 3.22 mill/uL (4.70-6.10); White Blood Cell (WBC) Count 13.4 thou/uL (4.8-10.8)
[2021-04-14 08:35] LABS: Anion Gap 16 mmol/L (10-20); BUN (Urea Nitrogen) 28 mg/dL (8.4-25.7); Calc. Creatinine Clearance 119 mL/min (70-130); Calcium 7.9 mg/dL (7.8-10.44); Carbon Dioxide 22 mmol/L (23-31); Chloride 102 mmol/L (98-107); Glucose 129 mg/dL (80-115); Magnesium 2.1 mg/dL (1.6-2.6); Potassium 3.8 mmol/L (3.5-5.1); Sodium 136 mmol/L (136-145)
[2021-04-14 08:45] LABS: Phosphorus 2.7 mg/dL (2.3-4.7)
[2021-04-14] MEDS: Bisacodyl 5 MG TAB PO SCH (09:07)
[2021-04-14] MEDS: Furosemide 40 MG TAB PO SCH ×2 (09:07→13:37)
[2021-04-14] MEDS: Aspirin Chewable 81 MG TAB PO SCH (09:08)
[2021-04-14] MEDS: Enoxaparin Sodium 40 MG/0.4 ML SYRINGE SC SCH (09:08)
[2021-04-14] MEDS: Carvedilol 3.125 MG TAB PO SCH ×2 (09:08→17:14)
[2021-04-14] MEDS: Polyethylene Glycol 3350 17 GM Packet PO SCH (09:08)
[2021-04-14] MEDS: Clopidogrel Bisulfate 75 MG TAB PO SCH (09:08)
[2021-04-14] MEDS: Potassium Chloride 10 MEQ TAB PO SCH ×2 (09:08→17:14)
[2021-04-14] MEDS: Loratadine 10 MG TAB PO SCH (09:08)
[2021-04-14] MEDS: Atorvastatin Calcium 40 MG TAB PO SCH (21:00)
[2021-04-14] MEDS: HYDROcodone/Acetaminophen 5/325 mg Tablet PO PRN (21:00)
[2021-04-15 05:06] LABS: #Basophils 0.1 thou/uL (0.0-0.2); #Eosinphils 0.3 thou/uL (0.0-0.7); #Lymphocytes 2.6 thou/uL (1.20-3.40); #Neutrophils 5.9 thou/uL (1.40-6.50); %Basophils 0.6 % (0.0-1.0); %Eosinophils 3.2 % (0.0-10.0); %Lymphocytes 26.2 % (21.0-51.0); %Monocytes 10.5 % (0.0-10.0); %Neutrophils 59.5 % (42.0-75.0); Hemoglobin 9.6 g/dL (14.0-18.0); Mean Corpuscular HGB CONC 34.4 g/dL (32.0-36.0); Mean Corpuscular Hemoglobin 33.2 pg (27.0-31.0); Mean Corpuscular Volume 96.5 fL (78.0-98.0); Mean Platelet Volume 7.1 fL (7.4-10.4); Platelet Count 254 thou/uL (130-400); RBC Distribution Width 12.5 % (11.5-14.5); White Blood Cell (WBC) Count 9.9 thou/uL (4.8-10.8)
[2021-04-15 05:21] LABS: Anion Gap 14 mmol/L (10-20); BUN (Urea Nitrogen) 24 mg/dL (8.4-25.7); Calc. Creatinine Clearance 124 mL/min (70-130); Calcium 7.8 mg/dL (7.8-10.44); Carbon Dioxide 25 mmol/L (23-31); Chloride 103 mmol/L (98-107); Glucose 118 mg/dL (80-115); Potassium 3.5 mmol/L (3.5-5.1); Sodium 138 mmol/L (136-145)
[2021-04-15 07:03] VITALS: BP 137/71; TEMP 98.5
[2021-04-15] MEDS: Furosemide 40 MG TAB PO SCH (08:38)
[2021-04-15] MEDS: Polyethylene Glycol 3350 17 GM Packet PO SCH (08:38)
[2021-04-15] MEDS: Aspirin Chewable 81 MG TAB PO SCH (08:38)
[2021-04-15] MEDS: Carvedilol 3.125 MG TAB PO SCH (08:38)
[2021-04-15] MEDS: Loratadine 10 MG TAB PO SCH (08:39)
[2021-04-15] MEDS: Enoxaparin Sodium 40 MG/0.4 ML SYRINGE SC SCH (08:39)
[2021-04-15] MEDS: Clopidogrel Bisulfate 75 MG TAB PO SCH (08:39)
[2021-04-15] MEDS: Bisacodyl 5 MG TAB PO SCH (08:39)
[2021-04-15] MEDS: Potassium Chloride 10 MEQ TAB PO SCH (08:39)
== END 2021-04-15 10:42 | disposition home or self-care (01) | DRG 233 ==
LOC: 2NO 17:06 → PACU-TCU 04-10 11:45 → OBSVTOIN 04-10 12:42 → CCU 04-10 15:17 → 2NO 04-12 17:04
PROVIDERS: ADMIT Family Medicine; ATTEND Internal Medicine
PROC: 02100Z9 Bypass Coronary Artery, One Artery from Left Internal Mammary, Open Approach (ICD-10-PCS; principal; 2021-04-10)
PROC: 4A023N7 Measurement of Cardiac Sampling and Pressure, Left Heart, Percutaneous Approach (ICD-10-PCS; 2021-04-10)
PROC: 021109W Bypass Coronary Artery, Two Arteries from Aorta with Autologous Venous Tissue, Open Approach (ICD-10-PCS; 2021-04-10)
PROC: 06BQ4ZZ Excision of Left Saphenous Vein, Percutaneous Endoscopic Approach (ICD-10-PCS; 2021-04-10)
PROC: B2111ZZ Fluoroscopy of Multiple Coronary Arteries using Low Osmolar Contrast (ICD-10-PCS; 2021-04-10)
PROC: B2151ZZ Fluoroscopy of Left Heart using Low Osmolar Contrast (ICD-10-PCS; 2021-04-10)
PROC: 5A1221Z Performance of Cardiac Output, Continuous (ICD-10-PCS; 2021-04-10)
DX: I21.4 Non-ST elevation (NSTEMI) myocardial infarction (principal); J96.01 Acute respiratory failure with hypoxia; J81.1 Chronic pulmonary edema; K21.9 Gastro-esophageal reflux disease without esophagitis; Z20.822 Contact with and (suspected) exposure to COVID-19; I10 Essential (primary) hypertension; E66.9 Obesity, unspecified; I25.10 Atherosclerotic heart disease of native coronary artery without angina pectoris; D72.829 Elevated white blood cell count, unspecified; E78.00 Pure hypercholesterolemia, unspecified; E83.39 Other disorders of phosphorus metabolism; K59.00 Constipation, unspecified; Z88.1 Allergy status to other antibiotic agents; Z88.8 Allergy status to other drugs, medicaments and biological substances; Z79.899 Other long term (current) drug therapy; Z68.36 Body mass index [BMI] 36.0-36.9, adult
CPT/HCPCS: 36415; 36416; 36430; 71045; 74018; 74176; 80048; 80061; 82805; 83036; 83605; 83735; 83880; 84100; 84145; 84484; 85025; 85347; 85610; 85730; 86850; 86900; 86901; 93005; 93010; 93306; 93458; 93798; 94002; 94150; 94640; 96372; 99152; 99153; G0378; J0360; J1644; J1650; J1815; J1940; J2001; J2150; J2250; J2270; J2405; J2440; J2704; J2720; J3010; J3370; J3475; J3480; J3490; J7030; J7050; J7120; J7620; P9045; S0017; S0028; U0003; U0005

== ENCOUNTER 2022-03-09 11:47 | Emergency (ER) | payer MEDICARE | END 2022-03-09 13:21 | disposition left against medical advice (07) | LOC: ERS 11:47 | DX: Z53.21 Procedure and treatment not carried out due to patient leaving prior to being seen by health care provider (principal) | CPT/HCPCS: 93005 ==

== ENCOUNTER 2022-07-30 08:26 | Emergency (ER) | payer MEDICARE, SELFPAY ==
[2022-07-30 10:08] LABS: #Basophils 0.1 thou/uL (0.0-0.2); #Eosinphils 0.9 thou/uL (0.0-0.7); #Lymphocytes 2.4 thou/uL (1.20-3.40); #Monocytes 0.8 thou/uL (0.11-0.59); #Neutrophils 5.3 thou/uL (1.40-6.50); %Basophils 0.8 % (0.0-1.0); %Eosinophils 9.3 % (0.0-10.0); %Lymphocytes 25.6 % (21.0-51.0); %Monocytes 8.5 % (0.0-10.0); %Neutrophils 55.9 % (42.0-75.0); Hemoglobin 13.3 g/dL (14.0-18.0); Mean Corpuscular HGB CONC 34.3 g/dL (32.0-36.0); Mean Corpuscular Hemoglobin 32.9 pg (27.0-31.0); Mean Corpuscular Volume 96.1 fl (78.0-98.0); Mean Platelet Volume 6.9 fL (7.4-10.4); Platelet Count 289 10x3/uL (130-400); RBC Distribution Width 12.1 % (11.5-14.5); Red Blood Cell (RBC) Count 4.02 mill/uL (4.70-6.10); White Blood Cell (WBC) Count 9.5 10x3/uL (4.8-10.8)
[2022-07-30 10:27] LABS: ALT (SGPT) 32 U/L (8-55); AST (SGOT) 20 U/L (5-34); Albumin 3.8 g/dL (3.4-4.8); Alkaline Phosphatase 104 U/L (40-110); Anion Gap 15 mmol/L (10-20); BUN (Urea Nitrogen) 13 mg/dL (8.4-25.7); Calc. Creatinine Clearance 0 mL/min (70-130); Calcium 9.1 mg/dL (7.8-10.44); Carbon Dioxide 23 mmol/L (23-31); Chloride 104 mmol/L (98-107); Estimated GFR 89; Globulin 3.4 g/dL (2.4-3.5); Glucose 119 mg/dL (80-115); Lipase 27 U/L (8-78); Potassium 4.2 mmol/L (3.5-5.1); Protein, Total 7.2 g/dL (5.8-8.1); Sodium 138 mmol/L (136-145)
== END 2022-07-30 11:23 | disposition home or self-care (01) ==
LOC: ERS 08:26
DX: R60.0 Localized edema (principal); I10 Essential (primary) hypertension
CPT/HCPCS: 36415; 71045; 80053; 83690; 83880; 84484; 85025; 93005

== ENCOUNTER 2023-04-27 11:05 | Outpatient (CLI) | payer MEDICARE | END 2023-04-27 11:06 | disposition home or self-care (01) | LOC: BICRAD 11:05 | PROVIDERS: ATTEND Internal Medicine | DX: R05.9 Cough, unspecified (principal) | CPT/HCPCS: 36415; 71046; 80053; 80061; 83036; 84443; 85025; G0103 ==

== ENCOUNTER 2025-06-11 22:00 | Emergency (ER) | payer MEDICARE ==
[2025-06-11 22:29] LABS: Bacteria/HPF None Seen HPF (None Seen); CAUTI Indications for Culture Dysuria,urgency,freq; Glucose, Urine (Dipstick) Normal (Negative); Leukocyte Negative Leu/uL (Negative); Protein, Urine (Dipstick) Negative (Neg-Trace); Specific Gravity, Urine 1.009 (1.002-1.036); WBC/HPF 0-3 HPF (0-3)
[2025-06-11 22:46] LABS: Urine Culture Reflex No No
== END 2025-06-12 00:29 | disposition home or self-care (01) ==
LOC: ERS 22:00
DX: N40.1 Benign prostatic hyperplasia with lower urinary tract symptoms (principal); R35.0 Frequency of micturition; R31.9 Hematuria, unspecified; I10 Essential (primary) hypertension; K21.9 Gastro-esophageal reflux disease without esophagitis; Z79.899 Other long term (current) drug therapy
CPT/HCPCS: 51701; 51798; 81001; 99283

== ENCOUNTER 2025-06-12 12:47 | Emergency (ER) | payer MEDICARE ==
[~2025-06-12 12:47] MED LIST: Iopamidol-370 76% 500 ML MDV (1 ML CHARGE) ONE
[2025-06-12 14:29] LABS: Bacteria/HPF None Seen HPF (None Seen); Glucose, Urine (Dipstick) Normal (Negative); Leukocyte Negative Leu/uL (Negative); Protein, Urine (Dipstick) Negative (Neg-Trace); RBC/HPF 0-3 HPF (0-3); Specific Gravity, Urine 1.014 (1.002-1.036); WBC/HPF 0-3 HPF (0-3)
[2025-06-12 15:57] LABS: Hematocrit 34.4 % (42.0-52.0); Hemoglobin 12.1 g/dL (14.0-18.0); Mean Corpuscular Hemoglobin 33.0 pg (27.0-31.0); Mean Corpuscular Volume 93.7 fL (78.0-98.0); Platelet Count 159 10x3/uL (130-400); Red Blood Cell (RBC) Count 3.67 mill/uL (4.70-6.10); White Blood Cell (WBC) Count 7.46 10x3/uL (4.8-10.8)
[2025-06-12 16:14] LABS: ALT (SGPT) 21 U/L (Less than 45); AST (SGOT) 26 U/L (11-34); Albumin 3.6 g/dL (3.1-4.5); Alkaline Phosphatase 80 U/L (40-110); Anion Gap 13 mmol/L (10-20); BUN (Urea Nitrogen) 28 mg/dL (8.4-25.7); Bilirubin, Total 1.2 mg/dL (0.3-1.2); Calc. Creatinine Clearance 0 mL/min (70-130); Calcium 8.8 mg/dL (7.8-10.44); Carbon Dioxide 23 mmol/L (23-31); Chloride 104 mmol/L (98-107); Globulin 3.3 g/dL (2.4-3.5); Glucose 95 mg/dL (83-110); Potassium 4.4 mmol/L (3.5-5.1); Sodium 136 mmol/L (136-145)
[2025-06-12 16:17] LABS: Anisocytosis SLIGHT = 6-15 cells HPF (0-5); Platelet Adequacy Comment Platelets Normal; Poikilocytosis SLIGHT = 6-15 cells HPF (0-5); Smudge Cells 11.0 %
== END 2025-06-12 17:23 | disposition home or self-care (01) ==
LOC: ERS 12:47
DX: R33.9 Retention of urine, unspecified (principal); I25.2 Old myocardial infarction; I10 Essential (primary) hypertension; Z79.82 Long term (current) use of aspirin; Z79.899 Other long term (current) drug therapy
CPT/HCPCS: 51701; 51702; 51798; 74177; 80053; 81001; 85025; 99283; 99284